=== PATIENT | male | born 1935 ===

== ENCOUNTER → 2016-06-15 | Outpatient (CLI) | payer MEDICARE, OTHER ==
[~2016-06-15] MED LIST: ACYCLOVIR200 MG ORAL; ACYCLOVIR400 MG ORAL; ASPIR 8181 MG ORAL; ATORVASTATIN CA10 MG ORAL; ATORVASTATIN CA20 MG ORAL; AVODART0.5 MG ORAL; BACTRIM-DS1 EA ORAL; DIFLUCAN50 MG ORAL; EPZICOM1 TAB ORAL; IBUPROFEN200 MG ORAL; KEFLEX500 MG ORAL; LEVAQUIN500 MG ORAL; METFORMIN HCL500 M1 ORAL; MYCELEX TROCHE10 MG ORAL; NORVIR100 MG ORAL; OMEPRAZOLE10 M1 ORAL; OMEPRAZOLE20 M2 ORAL; PREZISTA400 MG ORAL; RAPAFLO8 MG ORAL; ROXICODONE15 MG ORAL; SULFAMETHOXAZO1 EAC2 ORAL; VICODIN 5-3001 EACH ORAL; VICTOZA 2-0.6 MG/0.1 SUBQ; bactrim; triumeq PO
--- NOTE | 2016-06-15 15:36 | Diagnostic Imaging Report ---
Indication: Weight loss. Abdominal and chest pain. HIV positive Technique: Continuous helical transaxial imaging of the chest, abdomen and pelvis was obtained from the lung bases to the pubic symphysis during intravenous contrast administration. Multiple phases of enhancement obtained. Coronal 2-D reformats were also obtained. Study obtained in a Siemens sensation [address] Total Dose length Product (DLP): [address] Dose Index Volume (CTDIvol): 15, 8, 106, 15, 14 mGy Comparison: None Findings: CT chest: Lungs are clear. No consolidation, nodules, interstitial opacities identified. There is no adenopathy appreciated. Aorta shows some mural calcification but is normal in caliber. There is no evidence of dissection. The heart is unremarkable. The axilla appear clear. No definite abnormalities of the liver, gallbladder, spleen, pancreas identified. There are multiple cysts within both kidneys the largest of which is parapelvic left renal cyst which measures about 7 cm. No free fluid or free air demonstrated within the visualized portion of the abdomen. Pelvis was not scanned on this study. There is no adrenal mass. Mild endplate spurs are noted throughout the thoracic spine and lumbar spine to some extent. Mild hypertrophy of the facets noted. Impression: Multiple bilateral renal cysts. Atherosclerotic vascular disease Degenerative changes of the spine as discussed above The CT scanner at [facility] is accredited by the [employer] and the scans are performed using protocols designed to limit radiation exposure to as low as reasonably achievable to attain images of sufficient resolution adequate for diagnostic evaluation.
== END | disposition home or self-care (01) ==
LOC: RAD 10:47
DX: R63.4 Abnormal weight loss (principal); N28.1 Cyst of kidney, acquired; I25.10 Atherosclerotic heart disease of native coronary artery without angina pectoris; R07.9 Chest pain, unspecified
CPT/HCPCS: 71260; 74177; Q9967

== ENCOUNTER 2017-11-26 11:49 | Outpatient (CLI) | payer MEDICARE, MEDICAID ==
--- NOTE | 2017-11-26 14:35 | Diagnostic Imaging Report ---
Indication: Back pain Technique: MRI examination of the lumbar spine was performed in a 1.5 Dariana magnet. Sequences obtained include sagittal and axial T1 and T2 fast spin echo, and sagittal STIR. Comparison: none Findings: L2-3: There is evidence of a prominent disc herniation at L2-3 extending centrally and posteriorly with a prominent left paracentral focus of disc material (measuring 1.2 x 1 x 0.7 cm in transverse, craniocaudal, AP dimensions respectively) narrowing the left lateral recess and neural foramen and compressing the exiting left L2 nerve root. The extruded disc is superimposed on a concentric disc bulge that extends into the right neural foramen as well as narrowing and slightly compressing the exiting right L2 nerve root. There is also moderate central narrowing of the canal. Moderate facet arthropathy noted. L3-4 shows central spinal stenosis mainly due to facet arthropathy which is moderate at this level. There is narrowing of the lateral recess and mild to moderate bilateral foraminal stenosis also present. L4-5 shows a moderate disc disease with desiccation narrowing. There is no central stenosis. There is narrowing of the neural foramen moderate degree bilaterally. L1-2 demonstrates a concentric disc bulge. Facet arthropathy noted. Mild foraminal stenosis demonstrated. L5-S1 shows mild disc disease. No central stenosis or foraminal stenosis identified. Conus medullaris is seen at T12 and appears normal. Bone marrow signal normal. Alignment is normal. There is transitional anatomy at the lumbosacral junction. For purposes of this examination the transitional level is designated L5. There are incidental multiple bilateral renal cysts noted. A large cyst is noted in the left kidney measuring 7.3 cm. IMPRESSION: Prominent disc extrusion at L2-3 with attached 1 x 1.2 x 0.7 cm left paracentral/lateral nuclear pulposis fragment still attached to the parent disc. Compression of the exiting left L2 nerve root demonstrated. This level also notable for central spinal stenosis, narrowing of the lateral recess and moderate right foraminal stenosis. 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 Multilevel neural foraminal stenosis present at L1-2, L2-3, L3-4 and L4-5 as described above. Transitional lumbosacral anatomy
== END 2017-11-26 13:49 | disposition home or self-care (01) ==
LOC: MRI 11:49
DX: M54.16 Radiculopathy, lumbar region (principal)
CPT/HCPCS: 72148